=== PATIENT | male | born 1975 | race African-American/Black ===

== ENCOUNTER 2022-08-08 16:04 | Inpatient (IN) | payer SELFPAY ==
[~2022-08-08] VITALS: Ht 175.3 cm; Wt 113.0 kg
[2022-08-08 18:26] LABS: BASOPHILS % 1.1 % (0.0-2.0); EOSINOPHILS % 0.5 % (0.0-5.0); HEMATOCRIT. 51.3 % (42.0-52.0); HEMOGLOBIN. 16.4 g/dL (14.0-18.0); LYMPHOCYTES % 24.9 % (20.0-50.0); MEAN CORPUSCULAR HEMOGLOBIN 27.2 pg (28.0-32.0); MEAN CORPUSCULAR VOLUME 84.7 fL (80.0-94.0); MEAN PLATELET VOLUME 9.5 fl (7.4-10.4); MONOCYTES % 6.1 % (2.0-8.0); NEUTROPHILS % 67.4 % (40.0-76.0); PLATELET 326 x1000/uL (130-400); RED BLOOD CELL COUNT 6.05 mill/uL (4.7-6.1); RED CELL DISTRIBUTION WIDTH 14.4 % (11.6-14.6)
[2022-08-08 18:34] LABS: CHLORIDE 109 mEq/L (98-107)
[2022-08-08] MEDS ORDERED: ASPIRIN 325MG EC TABLET PO ONE (19:30)
[2022-08-08] MEDS ORDERED: METOPROLOL TARTRATE 5MG/5ML VIAL IV ONE ×2 (19:30)
[2022-08-08] MEDS ORDERED: METOPROLOL TARTRATE 50MG TABLET PO ONE (19:30)
[2022-08-08] MEDS ORDERED: FUROSEMIDE 20MG/2ML VIAL IVP ONE (19:30)
[2022-08-08] MEDS ORDERED: LORAZEPAM 2MG/ML CPJ IV ONE (20:45)
[2022-08-08 21:15] LABS: *AMPHETAMINES SCREEN URINE PRESUMTIVE POSITIVE (NEGATIVE); *BARBITURATES SCREEN URINE NEGATIVE (NEGATIVE); *BENZODIAZEPINES SCREEN URINE NEGATIVE (NEGATIVE); *COCAINE SCREEN URINE NEGATIVE (NEGATIVE); CANNABINOID URINE SCREEN NEGATIVE (NEGATIVE); METHADONE URINE SCREEN NEGATIVE (NEGATIVE); OPIATES URINE SCREEN NEGATIVE (NEGATIVE); PHENCYCLIDINE URINE SCREEN NEGATIVE (NEGATIVE)
[2022-08-09 11:00] VITALS: BP 130/85
[2022-08-09] MEDS ORDERED: ACETAMINOPHEN 325MG TABLET PO PRN (11:00)
[2022-08-09] MEDS ORDERED: ONDANSETRON HCL 4MG/2ML INJ IV PRN (11:00)
[2022-08-09] MEDS ORDERED: IPRATROPIUM/ALBUTEROL 0.5-3(2.5)MG/3ML NEB NEB PRN (11:00)
[2022-08-09] MEDS ORDERED: CLONIDINE 0.1MG TABLET PO PRN (11:00)
[2022-08-09 11:19] LABS: BG BASE EXCESS -0.6 mmol/L (-2.0-2.0); BG DEOXYHEMOGLOBIN 4.7 % (0.0-5.0); BG FRACTION INSPIRED OXYGEN 21; BG HCO3 ACT 21.6 mmol/L (22.0-26.0); BG METHEMOGLOBIN 0.3 % (0.0-1.5); BG OXYGEN SATURATION 95.2 % (92.0-98.5); BG PCO2 29.8 mmHg (35.0-45.0); BG PH 7.479 (7.350-7.450); BG PO2 76.3 mmHg (75.0-100.0); BG SAMPLE SITE LEFT RADIAL; BG VENT MODE ROOM AIR
[2022-08-09] MEDS ORDERED: ALBUTEROL (0.083%) 2.5MG/3ML NEB HHN PRN (12:00)
[2022-08-09] MEDS ORDERED: IPRATROPIUM BROMIDE (0.02%) 0.5MG/2.5ML NEB HHN PRN (12:00)
[2022-08-09] MEDS: SODIUM CHLORIDE 0.9% 1,000 ML IV SCH (13:59)
[2022-08-09] MEDS: ENOXAPARIN 40MG/0.4ML SYR SUBCUT SCH (13:59)
[2022-08-09 16:00] VITALS: BP 128/98
[2022-08-09 16:58] LABS: CREATINE KINASE MB FRACTION 2.2 ng/mL (0.5-3.6)
[2022-08-09] MEDS: LORAZEPAM 2MG/ML CPJ IV PRN ×2 (17:47→21:14)
[2022-08-09 20:00] VITALS: BP 94/72
[2022-08-09] MEDS: AMLODIPINE 5MG TABLET PO SCH (21:13)
[2022-08-10 00:02] VITALS: BP 149/110
[2022-08-10] MEDS: SODIUM CHLORIDE 0.9% 1,000 ML IV SCH (00:59)
[2022-08-10 04:00] VITALS: BP 141/112
[2022-08-10 07:07] LABS: HEMATOCRIT. 45.8 % (42.0-52.0); HEMOGLOBIN. 14.8 g/dL (14.0-18.0); LYMPHOCYTES % 26.1 % (20.0-50.0); MEAN CORPUSCULAR HEMOGLOBIN 27.6 pg (28.0-32.0); MEAN CORPUSCULAR VOLUME 85.1 fL (80.0-94.0); MEAN PLATELET VOLUME 10.1 fl (7.4-10.4); NEUTROPHILS % 64.9 % (40.0-76.0); PLATELET 292 x1000/uL (130-400); RED BLOOD CELL COUNT 5.38 mill/uL (4.7-6.1); RED CELL DISTRIBUTION WIDTH 14.5 % (11.6-14.6)
[2022-08-10 08:00] VITALS: BP 146/79
[2022-08-10 08:22] LABS: CHLORIDE 111 mEq/L (98-107)
[2022-08-10 08:51] LABS: HDL CHOLESTEROL 36 mg/dL (40-59); LDL CHOLESTEROL 103 mg/dL (5-100); T4 FREE 1.07 ng/dL (0.76-1.46)
[2022-08-10] MEDS: AMLODIPINE 5MG TABLET PO SCH (09:45)
[2022-08-10] MEDS: ENOXAPARIN 40MG/0.4ML SYR SUBCUT SCH (09:45)
[2022-08-10] MEDS ORDERED: LOSARTAN POTASSIUM 25 MG TABLET PO SCH (10:30)
[2022-08-10 11:43] VITALS: BP 146/79
[2022-08-10 12:00] VITALS: BP 150/107
== END 2022-08-10 12:51 | disposition home or self-care (01) | DRG 194 ==
LOC: ER 16:04 → MICUSO 20:11 → EDBEDREQTM 20:19 → EDBEDREQ 20:19 → 7WST 08-09 11:45
PROVIDERS: ADMIT Internal Medicine; ATTEND Internal Medicine
DX: I11.0 Hypertensive heart disease with heart failure (principal); J96.00 Acute respiratory failure, unspecified whether with hypoxia or hypercapnia; I50.9 Heart failure, unspecified; Z20.822 Contact with and (suspected) exposure to COVID-19; F15.10 Other stimulant abuse, uncomplicated; F41.9 Anxiety disorder, unspecified; F17.210 Nicotine dependence, cigarettes, uncomplicated
CPT/HCPCS: 36415; 36600; 71045; 80048; 80053; 80061; 80305; 82375; 82550; 82553; 82805; 83735; 83880; 84439; 84443; 84481; 84484; 85025; 85379; 93005; 93306; 93970; 99291; J1650; J1940; J2060; J3490; J7030